=== PATIENT | female | born 1975 | race Caucasian/White ===

== ENCOUNTER → 2020-07-21 14:26 | Outpatient (CLI) | payer OTHER, MEDICAID, SELFPAY | PROVIDERS: PCP Family Medicine; Visit Provider Family Medicine | DX: R22.1 Localized swelling, mass and lump, neck (principal) | CPT/HCPCS: 87081; 87147; 87880 ==

== ENCOUNTER → 2025-02-11 12:06 | Outpatient (CLI) | payer OTHER, MEDICAID, SELFPAY ==
[2025-02-11 19:15] LABS: Add Manual Diff / Slide Review NO; Hematocrit 29.6 % (36-46); Hemoglobin 9.2 g/dL (12.0-16.0); Lymphocytes Absolute Auto 1000 /uL (1100-4500); Mean Corpuscular HGB Conc 31.3 % (30-36); Mean Corpuscular Hemoglobin 23.1 PG (26-34); Mean Corpuscular Volume 74.0 fL (80-100); Platelet Count 403 X10^3/uL (150-400)
[2025-02-11 19:32] LABS: Hemoglobin A1C% w Est Avg Glu 5.6 % (4.0-6.0)
[2025-02-11 19:35] LABS: Alanine Aminotransferase 15 IU/L (<35); Albumin 4.5 g/dL (3.5-5.0); Albumin Globulin Ratio 1.2 (1.0-2.8); Alkaline Phosphatase 81 U/L (38-126); Blood Urea Nitrogen 11 mg/dL (7-17); Calcium 9.7 mg/dL (8.4-10.2); Carbon Dioxide 30 mmol/L (22-32); Chloride 100 mmol/L (98-107); Cholesterol 205 mg/dL (140-199); Estimated Glomerular Filt Rate > 60 mL/min (>60); Globulin 3.9 g/dL (1.7-4.1); Glucose 79 mg/dL (70-99); HDL Cholesterol 92 mg/dL (40-60); HEMOLYSIS < 15 (0-50); Potassium 3.6 mmol/L (3.4-5.1); Sodium 139 mmol/L (137-145); Total Protein 8.4 g/dL (6.3-8.2); Triglycerides 53 mg/dL (35-150)
[2025-02-11 20:03] LABS: TSH w/ Reflex to FT4 1.65 uIU/mL (0.47-4.68)
== END ==
PROVIDERS: PCP Physician Assistant Medical; Visit Provider Physician Assistant Medical
DX: I21.9 Acute myocardial infarction, unspecified (principal); R20.0 Anesthesia of skin; R20.2 Paresthesia of skin; R07.9 Chest pain, unspecified
CPT/HCPCS: 80053; 80061; 83036; 84443; 85025

== ENCOUNTER → 2025-02-16 14:13 | Outpatient (CLI) | payer OTHER, MEDICAID, SELFPAY ==
[2025-02-16 18:35] LABS: Add Manual Diff / Slide Review NO; Hematocrit 27.9 % (36-46); Hemoglobin 8.9 g/dL (12.0-16.0); Lymphocytes Absolute Auto 1300 /uL (1100-4500); Mean Corpuscular HGB Conc 31.8 % (30-36); Mean Corpuscular Hemoglobin 23.6 PG (26-34); Mean Corpuscular Volume 74.3 fL (80-100); Platelet Count 429 X10^3/uL (150-400)
== END ==
PROVIDERS: PCP Physician Assistant Medical; Visit Provider Physician Assistant Medical
DX: D75.839 Thrombocytosis, unspecified (principal); D64.9 Anemia, unspecified; R20.0 Anesthesia of skin; R20.2 Paresthesia of skin; Q76.5 Cervical rib
CPT/HCPCS: 85025; 85379

== ENCOUNTER 2025-02-20 21:11 | Emergency (ER) | payer OTHER, SELFPAY ==
[2025-02-20 21:26] VITALS: BP 129/74; PULSE 88; RESP 16; TEMP 36.6; O2SAT 100; BMI 20.3
[2025-02-20 21:56] VITALS: PULSE 84; O2SAT 100
[2025-02-20 22:00] VITALS: BP 152/71; PULSE 88; O2SAT 100
[2025-02-20 22:30] VITALS: BP 121/67; PULSE 88; O2SAT 100
[2025-02-20 23:00] VITALS: BP 120/58; PULSE 92; O2SAT 99
--- NOTE | 2025-02-20 23:02 | ED_ITS ---
HPI - Extremity Problem General Chief complaint: Extremity Problem,Nontraumatic Stated complaint: pain/numbness in both arms Time Seen by Provider: 02/20/25 21:23 Source: patient Mode of arrival: Ambulatory History of Present Illness HPI Narrative: 49-year-old female with a history of bilateral arm pain and numbness for the past several months. She has seen her PCP in the past but has not had any imaging done. She denies any other symptoms. Related Data Previous Rx's ?Medication ?Instructions ?Recorded duloxetine 20 mg capsule,delayed 20 mg PO .hs #30 caps 02/11/25 release mupirocin 2 % topical ointment 1 applic topical TID #2 2 grams 02/11/25 cyclobenzaprine 10 mg tablet 10 mg PO TID PRN muscle s pasm #10 02/20/25 tabs Allergies Allergy/AdvReac Type Severity Reaction Status Date / Time Penicillins Allergy Severe anaphalaxis Verified 02/20/25 21:26 Review of Systems Review of Systems ROS Unobtainable: All systems reviewed & are unremarkable except as noted in HPI and below Patient History Medical History (Updated 02/20/25 @ 23:04 by Sabino More MD) Bipolar 1 disorder PTSD (post-traumatic stress disorder) Social History Smoking Status: Current every day smoker Smoking Status: Current every day smoker tobacco type: vaping Exam Narrative Exam Narrative: General: Patient appears to be in no acute distress, acting appropriately Head: normocephalic, atraumatic, HEENT: Pupils equal round reactive, eyes tracking well, neck supple, no JVD, bilateral spurling manuever pos Heart: regular rate and rhythm, no murmurs, rubs, or gallops heard Lungs: clear to auscultation, no adventitious sounds Abdomen: soft , nontender, nondistended, positive bowel sounds Neurological: no focal neurological signs, moving all extremities well, alert and oriented x3, Psych: good judgment ,good insight, mood is normal. Initial Vital Signs Initial Vital Signs: Vital Signs Temperature 97.8 F 02/20/25 21:26 Pulse Rate 88 02/20/25 21:26 Respiratory Rate 16 02/20/25 21:26 Blood Pressure 129/74 02/20/25 21:26 Pulse Oximetry 100 02/20/25 21:26 Oxygen Delivery Method Room Air 02/20/25 21:26 Course Orders Ordered: Discontinued Medications Cyclobenzaprine HCl (Cyclobenzaprine 10 Mg Prepack) 1 bottle MISC DIRECTED ONE Stop: 02/20/25 23:04 Last Admin: 02/20/25 23:27 Dose: 1 bottle Documented By: FIDE Vital Signs Vital signs: Vital Signs - 8 hr 02/20/25 21:56 02/20/25 22:00 02/20/25 22:00 Pulse Rate 84 88 Blood Pressure 152/71 H Pulse Oximetry 100 100 02/20/25 22:30 02/20/25 22:30 02/20/25 23:00 Pulse Rate 88 Blood Pressure 121/67 120/58 L Pulse Oximetry 100 02/20/25 23:00 Pulse Rate 92 H Blood Pressure Pulse Oximetry 99 MDM - Extremity (Nontraumatic) MDM Narrative Medical decision making narrative: 49-year-old female with longstanding bilateral arm pain and numbness and tingling off and on. Based on physical examination, patient most likely dealing with a cervical radiculopathy. Went ahead and prescribed the patient has some muscle relaxants to be used as needed and will follow up with PCP for further intervention. Patient will most likely need an MRI of her cervical spine in the future. Follow up for any worsening symptoms. Discharge Plan Departure Patient Disposition: Home Clinical Impression: Cervical disc disorder with radiculopathy Instructions: DI for Cervical Radiculopathy Activity Restrictions/Additional Instructions: Advised that she is most likely dealing with cervical radiculopathy from physical exam. Advised she would benefit from an MRI of her cervical spine. Advised to follow up with her PCP to order the imaging. Follow up if symptoms worsen. Prescriptions: New cyclobenzaprine 10 mg tablet 10 mg PO TID PRN (Reason: muscle spasm) Qty: 10 0RF No Action mupirocin 2 % ointment 1 applic topical TID Qty: 22 0RF duloxetine 20 mg capsule,delayed release(DR/EC) 20 mg PO .hs Qty: 30 0RF Referrals: Scarlett Smith PA-C [Primary Care Provider, Medical] Stand Alone Forms: Patient Portal/API
[2025-02-20] MEDS: CYCLOBENZAPRINE 10 MG PREPACK 1 BOTTLE MISC (23:27)
== END 2025-02-20 23:40 | disposition home or self-care (01) ==
PROVIDERS: Emergency Provider Family Medicine; PCP Physician Assistant Medical
DX: M50.10 Cervical disc disorder with radiculopathy, unspecified cervical region (principal)
CPT/HCPCS: 99281